=== PATIENT | female | born 1975 | race American Indian/Alaskan Native ===

== ENCOUNTER 2019-12-30 06:37 | Day surgery (SDC) | payer BC ==
[2019-12-30] MEDS ORDERED: Midazolam 1 MG/ML 2 ML SDV IV ONE (06:38)
[2019-12-30] MEDS ORDERED: Succinylcholine 200 MG/10 ML MDV IV ONE (06:38)
[2019-12-30] MEDS ORDERED: Rocuronium 100 MG/10 ML MDV IV ONE (06:38)
[2019-12-30] MEDS ORDERED: fentaNYL 100 MCG/2 ML SDV IV ONE (06:38)
[2019-12-30] MEDS ORDERED: Ketorolac 30 MG/ML SDV IVPUSH ONE (06:38)
[2019-12-30] MEDS ORDERED: Propofol 200 MG/20 ML SDV IV ONE (06:38)
[2019-12-30] MEDS ORDERED: Lidocaine 2% 20 ML MDV ONE (06:38)
[2019-12-30] MEDS ORDERED: Dexamethasone 4 MG/ML SDV IV ONE (06:38)
[2019-12-30] MEDS ORDERED: Ondansetron 4 MG/2 ML SDV IV ONE (06:38)
[2019-12-30] MEDS ORDERED: Lactated Ringers 1,000 ML IV SCH (06:45)
[2019-12-30] MEDS ORDERED: Morphine 2 MG/ML SYRINGE IVPUSH PRN (09:35)
[2019-12-30] MEDS ORDERED: Sodium Chloride 0.9% 10 ML Syringe FLUSH PRN (09:38)
--- NOTE | 2019-12-30 11:12 | OR ---
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 ANESTHESIA: General. ESTIMATED BLOOD LOSS: Minimal. SPECIMEN: Lap-band and port site. INDICATIONS FOR PROCEDURE: This 44-year-old female has had a lap-band placed over the last several years. She has had several repositioning of the port and now has a fistula through the lower part of her left lower quadrant abdominal wall. She does not tolerate the function of the band and they were unable to access the band secondary to the fistula site. She has elected to simply remove the band. PROCEDURE IN DETAIL: After adequate preparation, under direct vision, a 5 mm trocar was placed supraumbilically. The abdomen was then insufflated and 4 other trocars were placed under direct vision. The left lobe of the liver was elevated, which exposed a few adhesions of the band to the liver. These were taken down by cautery dissection. The lap-band was identified and the fibrous capsule surrounding the band was incised and the band mobilized. Sharp scissors were used to transect the band and the band was removed from the capsule. I had previously done an endoscopic evaluation of the esophagus and EG junction as the patient had been intubated. There was no evidence of band erosion into the stomach or esophagus. This was then confirmed intraoperatively by water test. The stomach was insufflated, and under water, there was no evidence of leak around where the band capsule had been. There was no need for suture closure. The trocars were then removed. The left lower quadrant fistula site was enlarged to reveal the port, which had flipped upside down. The surrounding Prolene sutures were cut and rest of the port and catheter to the band were removed. The port site was not closed. It was packed with a 4 x 4 gauze pad. The other trocar incisions were closed with a 4-[address] [facility] /[id number]
[2019-12-30] MEDS: HYDROmorphone 1 MG/ML Syringe IVPUSH PRN ×2 (11:19→20:08)
[2019-12-30] MEDS: Ondansetron 4 MG/2 ML SDV IVPUSH PRN (20:06)
[2019-12-31] MEDS: Ondansetron 4 MG/2 ML SDV IVPUSH PRN (06:16)
[2019-12-31] MEDS: HYDROmorphone 1 MG/ML Syringe IVPUSH PRN (06:18)
--- NOTE | 2019-12-31 08:01 | PCM.SN.2 ---
- Free Text/Narrative Note: Stable POD #1. VSS. PO tolerated. Minimal pain. Wounds clean and dry. No meds to go home with. No restrictions. FU my clinic if needed. Can DC.
== END 2019-12-31 09:00 | disposition home or self-care (01) ==
LOC: DL.ENDO 06:37
PROVIDERS: ATTEND Surgery
DX: K95.09 Other complications of gastric band procedure (principal); T81.83XA Persistent postprocedural fistula, initial encounter; E66.9 Obesity, unspecified; G89.29 Other chronic pain; Z01.812 Encounter for preprocedural laboratory examination; Z20.828 Contact with and (suspected) exposure to other viral communicable diseases; Z88.0 Allergy status to penicillin; Z68.42 Body mass index [BMI] 45.0-49.9, adult
CPT/HCPCS: 00790; J0330; J1100; J1170; J1885; J2001; J2250; J2405; J2704; J3010; J7120; U0002